=== PATIENT | female | born 1965 | race Caucasian/White ===

== ENCOUNTER 2023-10-23 13:27 | Outpatient (AMB) | payer BC, SELFPAY ==
[2023-10-23 13:34] VITALS: BP 118/70; PULSE 84; O2SAT 95; BMI 24.9
--- NOTE | 2023-10-23 13:34 | A.OFFVIS_ITS ---
Intake Vital Signs 10/23/23 13:34 Height 5 ft 4 in Weight 145 lb BMI 24.9 BP 118/70 Blood Pressure Location Lt brachial Position Sitting Pulse 84 Pulse Source Pulse Oximeter Pulse Oximetry (%) 95 Oxygen Delivery Method Room Air Intake Visit Reasons: asthma, lung nodule Clinical Laboratory Science Professor Required: No Allergies No Known Allergies Allergy (Verified 10/23/23 13:37) HPI HPI Comments History of Present Illness Details The patient is here for a pulmonary evaluation. The patient is a 57-year-old woman with a known history of asthma who apparently was in her usual state health until she had a incident at work where she fell and ended up being evaluating the ER. She had a chest x-ray and subsequently from the x-ray she underwent a CT scan of the chest to follow-up some findings. I did personally review the CT scan with the patient. The patient is noted to have pulmonary nodules largest 1 measuring 6 mm in size. In addition to that the patient She has areas of ground-glass opacities primarily left more than right primarily around the lingular area. In addition to that she does have some degree of atelectasis and scarring the bases. Right more than left. Patient as a child did have significant asthma and she did have episodes of lower respiratory infections. Therefore med she may have some degree of scarring from recurrent infections. as far as exposures the patient denies having any exposure to any birds or farm exposure or any mold. the patient has an occasion use a vape or pipe for medicinal purposes. At this point I recommend the patient not to use any inhaled medicines except for the respiratory medications provided. the patient is going to have additional blood work. As far as inflammatory condition she denies any rashes or any activities except further injury. She does have family history of connective tissue disease, however. [facility] Medical History (Updated 10/25/23 @ 21:36 by Devin iLno MD) Alopecia Pulmonary nodules Asthma Pneumonitis Social History (Updated 10/23/23 @ 13:39 by LYNDA Giron) Patient Tobacco Use Status: Never used Tobacco Review of Systems Const Denies fever(s) and Denies weight loss Eyes Reports no additional complaints ENT Reports nasal congestion Card Denies chest pain Resp Reports cough and Reports wheezing GI Reports no additional complaints Musc Reports no additional complaints Skin/Breast Denies rash Neuro Reports no additional complaints Nilo/Lymph Denies lymphadenopathy Aller/Immun Reports wheezing Physical Exam Vital Signs: Last Vital Signs Pulse 84 10/23/23 13:34 BP 118/70 10/23/23 13:34 Pulse Ox 95 10/23/23 13:34 Oxygen Delivery Method Room Air 10/23/23 13:34 BMI result Body Mass Index 24.9 Const General: comfortable Neck Neck: Yes supple Chest Chest palpation & inspection: normal inspection of the chest Resp Effort & Inspection: normal respiratory effort Auscultation: clear to auscultation bilaterally Cardio Heart sounds: S1 normal heart sound present and S2 normal heart sound present GI Palpation (GI): Soft to palpation Skin General skin exam: no rashes or lesions noted Extrem General: Yes no clubbing, cyanosis or edema Assessment & Plan Assessment & Plan (1) Asthma: Code(s): J45.909 - Unspecified asthma, uncomplicated Qualifiers: Asthma severity: moderate Asthma persistence: persistent Asthma complication type: uncomplicated Qualified Code(s): J45.40 - Moderate persistent asthma, uncomplicated (2) Pneumonitis: Code(s): J98.4 - Other disorders of lung (3) Pulmonary nodules: Code(s): R91.8 - Other nonspecific abnormal finding of lung field Plan Continue Symbicort YESI as needed continue singulair No vaping or inhaled medicinal Cannabinoids Bloodwork/allergy testing PFTs CT chest in 6 months F/U 2-3 months Orders: Orders Complete Blood Count Auto Diff 10/23/23 J45.909 - Unspecified asthma, uncomplicated, J98.4 - Other disorders of lung CHALO Reflex Titer and Pattern 10/23/23 J45.909 - Unspecified asthma, uncomplicated, J98.4 - Other disorders of lung Cyclic Citrullinated Peptide 10/23/23 J45.909 - Unspecified asthma, uncomplicated, J98.4 - Other disorders of lung Erythrocyte Sedimentation Rate 10/23/23 J45.909 - Unspecified asthma, uncomplicated, J98.4 - Other disorders of lung Hypersensitive Pneumonitis Prf 10/23/23 J45.909 - Unspecified asthma, uncompl icated, J98.4 - Other disorders of lung, R91.8 - Other nonspecific abnormal finding of lung field Immunoglobulin E 10/23/23 J45.909 - Unspecified asthma, uncomplicated, J98.4 - Other disorders of lung Resp Allergy Profile Region I 10/23/23 J45.909 - Unspecified asthma, uncomplicated, J98.4 - Other disorders of lung Anti DNA DS Antibody 10/23/23 J45.909 - Unspecified asthma, uncomplicated, J98.4 - Other disorders of lung PFT pulmonary function test Today J45.40 - Moderate persistent asthma, uncomplicated CT chest wo IV con 6 Months R91.8 - Other nonspecific abnormal finding of lung field Coding Level of Care Code New Pt Level 4 (99869) Diagnoses Moderate persistent asthma without complication J45.40 Asthma severity: moderate Asthma persistence: persistent Asthma complication type: uncomplicated Pneumonitis J98.4 Pulmonary nodules R91.8 Time Spent (min) 45
== END 2023-10-23 14:30 ==
PROVIDERS: PCP Internal Medicine; Referring Provider Internal Medicine; Visit Provider Hospitalist
DX: J45.40 Moderate persistent asthma, uncomplicated (principal); J98.4 Other disorders of lung; R91.8 Other nonspecific abnormal finding of lung field
CPT/HCPCS: 99204

== ENCOUNTER → 2023-10-23 13:27 | Outpatient (BNVA) | payer BC, SELFPAY | PROVIDERS: PCP Internal Medicine; Referring Provider Internal Medicine; Visit Provider Hospitalist ==

== ENCOUNTER 2024-11-29 14:53 | Outpatient (REF) | payer BC, SELFPAY ==
[2024-11-29 16:23] LABS: Influenza A PCR NEGATIVE (Negative); Influenza B PCR NEGATIVE (Negative); Resp Syncy Virus RNA Qual PCR NEGATIVE (Negative); SARS COV2 PCR INHOUSE NEGATIVE (Negative)
--- OUTSIDE RECORDS SUMMARY | 2024-11-29 16:26 | XMS_ITS | Clinical Summary ---
Author Organization [facility] ity Address [place] [address] Care Team Providers Care Rehab Director Occupational Therapist Name Role Phone Naveed Orosco MD Primary Care Provider [phone] Social History Tobacco Use Types Packs/Day Years [...] age to complete this topic Care Teams Rehab Director Occupational Therapist Relationship Specialty Start Date End Date Naveed Orosco MD PCP - General Internal Medicine 07/10/21
== END 2024-11-29 14:54 | disposition home or self-care (01) ==
LOC: HO.LNP 14:53
PROVIDERS: PCP Internal Medicine; Visit Provider Hospitalist
DX: J45.41 Moderate persistent asthma with (acute) exacerbation (principal); J98.4 Other disorders of lung; R91.8 Other nonspecific abnormal finding of lung field; J40 Bronchitis, not specified as acute or chronic
CPT/HCPCS: 0241U

== ENCOUNTER 2024-11-29 14:53 | Outpatient (AMB) | payer BC, SELFPAY ==
--- NOTE | 2024-11-29 15:00 | A.OFFVIS_ITS ---
Vital Signs 11/29/24 15:01 Height 5 ft 4 in Weight 148 lb 12.992 oz BMI 25.5 BP 130/84 Blood Pressure Location Rt brachial Position Sitting Pulse 83 Pulse Source Pulse Oximeter Pulse Oximetry (%) 95 Oxygen Delivery Method Room Air Intake Visit Reasons: dyspnea, wheeze Allergies No Known Allergies Allergy (Verified 11/29/24 15:05) HPI Comments Details: The patient is a 59-year-old woman with a known history of asthma who apparently was in her usual state health until she had a incident at work where she fell and ended up being evaluating the ER. She had a chest x-ray and subsequently from the x-ray she underwent a CT scan of the chest to follow-up some findings. I did personally review the CT scan with the patient. The patient is noted to have pulmonary nodules largest 1 measuring 6 mm in size. In addition to that the patient She has areas of ground-glass opacities primarily left more than right primarily around the lingular area. In addition to that she does have some degree of atelectasis and scarring the bases. Right more than left. Patient as a child did have significant asthma and she did have episodes of lower respiratory infections. Therefore med she may have some degree of scarring from recurrent infections. as far as exposures the patient denies having any exposure to any birds or farm exposure or any mold. the patient has an occasion use a vape or pipe for medicinal purposes. At this point I recommend the patient not to use any inhaled medicines except for the respiratory medications provided. the patient is going to have additional blood work. As far as inflammatory condition she denies any rashes or any activities except further injury. She does have family history of connective tissue disease, however. 11/29/2024 the patient is here for sick visit. She has been sick we started developing chest tightness and cough. Sometimes productive although not recently. Moderate severity. She has been using her respiratory therapy with only partial resolution of symptoms. On exam she does have prolonged expiratory phase with post exhalation and coughing wheezing. The patient will need some steroids. Although she did develop significant alopecia whenever solids after prolonged course of prednisone. Therefore will go ahead and send her Medrol to the pharmacy and also doxycycline. The patient also needs to continue to use her inhalers as prescribed and also needs to continue to use her nebulizer or rescue inhaler once or twice a day in between. We did swab her for flu RSV and COVID-19 and they were all negative with a PCR test. The patient was supposed to get a CT scan of the chest but she has not done as of yet. Now that she is sick with viral syndrome will hold off for couple months to make sure that we do not see any acute manifestations of viral disease on her CT scan. Therefore, follow-up CT scan if any issues arise she will call for an earlier assessment. [facility] Medical History (Updated 11/29/24 @ 23:06 by Devin Lino MD) Alopecia Pulmonary nodules Asthma Pneumonitis Social History Patient Tobacco Use Status: Never used Tobacco Review of Systems Const Denies fever(s) and Denies weight loss Eyes Reports no additional complaints ENT Reports nasal congestion Card Denies chest pain Resp Reports chest congestion, Reports cough and Reports wheezing GI Reports no additional complaints Musc Reports no additional complaints Skin/Breast Denies rash Neuro Reports no additional complaints Nilo/Lymph Denies lymphadenopathy Aller/Immun Reports wheezing Physical Exam Vital Signs: Last Vital Signs Pulse 83 11/29/24 15:01 BP 130/84 11/29/24 15:01 Pulse Ox 95 11/29/24 15:01 Oxygen Delivery Method Room Air 11/29/24 15:01 BMI result Body Mass Index 25.5 Const General: comfortable Neck Neck: Yes supple Chest Chest palpation & inspection: normal inspection of the chest Resp Effort & Inspection: normal respiratory effort Auscultation: rhonchi, wheezes and diminished lung sounds Cardio Heart sounds: S1 normal heart sound present and S2 normal heart sound present GI Palpation (GI): Soft to palpation Skin General skin exam: no rashes or lesions noted Extrem General: Yes no clubbing, cyanosis or edema Assessment & Plan Assessment & Plan (1) Asthma: Code(s): J45.909 - Unspecified asthma, uncomplicated Category: Medical Qualifiers: Asthma complication type: with acute exacerbation Asthma persistence: persistent Asthma severity: moderate Qualified Code(s): J45.41 - Moderate persistent asthma with (acute) exacerbation (2) Pneumonitis: Code(s): J98.4 - Other disorders of lung Category: Medical (3) Pulmonary nodules: Code(s): R91.8 - Other nonspecific abnormal finding of lung field Category: Medical (4) Bronchitis: Code(s): J40 - Bronchitis, not specified as acute or chronic Category: Medical Plan Start Medrol pk sStart Doxycycline Continue Trelagy YESI as needed continue singulair No vaping or inhaled medicinal Cannabinoids CT chest in 2-3 months F/U 3-4 months Orders: Orders SARS-CoV2/FLU/RSV Today J45.40 - Moderate persistent asthma, uncomplicated CT chest wo IV con 01/16/25 J98.4 - Other disorders of lung, R91.8 - Other nonspecific abnormal finding of lung field Medications: New methylprednisolone (Medrol (Juan Ramon)) PO PER PKG DIR 21 ea 0RF 6 days doxycycline hyclate 100 mg PO BID 20 caps 0RF 10 days albuterol sulfate 2.5 mg (3 mL) inhalation Q6H PRN 180 mL 11RF shortness of breath or wheezing 30 days Refilled zlwuwvtkwuz-tccvmvdxg-itdsbome 200-62.5-25 mcg (Trelegy Ellipta) 1 inh inhalation DAILY 60 ea 12RF 30 days Coding Level of Care Code Est Pt Level 4 (26503) Diagnoses Moderate persistent asthma with acute exacerbation J45.41 Asthma complication type: with acute exacerbation Asthma persistence: persistent Asthma severity: moderate Pneumonitis J98.4 Pulmonary nodules R91.8 Bronchitis J40 Time Spent (min) 16
[2024-11-29 15:01] VITALS: BP 130/84; PULSE 83; O2SAT 95; BMI 25.5
--- OUTSIDE RECORDS SUMMARY | 2024-11-29 15:51 | XMS_ITS | Clinical Summary ---
Author Organization [facility] [place] [address] Care Team Providers Care Business Leader Name Role Phone Naveed Orosco MD Primary Care Provider [phone] Social History Tobacco Use Types Packs/Day Years Used Date Smoking Tobacco: Never Assessed Comments Unknown Sex and Gender Information Value Date Recorded Sex Assigned at Not on file Legal Sex Female 9:03 PM EST Gender Identity Not on file Sexual Orientation Not on file Plan of Treatment Health Maintenance Due Date Last Done Comments Breast Cancer Screening 1965 DTaP,Tdap,and Td Vaccines (1 - Tdap) 1983 Cervical Cancer Screening: P ap Smear 1985 Pneumococcal Vaccine: 50+ Ye ars (1 of 1 - PCV) 2014 Zoster Vaccines (1 of 2) 2014 Colorectal Cancer Screening: Colonoscopy 09/13/2022 Depression Screening 09/13/2022 HIV Screening 09/13/2022 Hepatitis C Screening 09/13/2022 Social Influencers of Health Screening 09/13/2022 COVID-19 Vaccine ( - 2023-2 5 season) 2024 Influenza Vaccine (#1) 2024 RSV Immunization Patients 60 + Years Old (1 - 1-dose 75+ series) 2039 HIB Vaccines Aged Out No longer eligi ble based on patient's age to complete this topic HPV Vaccines Aged Out No longer eligi ble based on patient's age to complete this topic Hepatitis A Vaccines Aged Out No long er eligible based on patient's age to complete this topic Hepatitis B Vaccines Aged Out No long er eligible based on patient's age to complete this topic IPV Vaccines Aged Out No longer eligi ble based on patient's age to complete this topic MMR Vaccines Aged Out No longer eligi ble based on patient's age to complete this topic Meningococcal ACWY Vaccine Aged Out N o longer eligible based on patient's age to complete this topic Meningococcal B Vacine Aged Out No lo nger eligible based on patient's age to complete this topic Pneumococcal Vaccine: Pediat rics (0 to 5 Years) and At-Risk Patients (6 to 64 Years) Aged Out No longer eligible b ased on patient's age to complete this topic RSV Immunization Patients Un jyoti 20 months Aged Out No longer eligible b ased on patient's age to complete this topic Varicella Vaccines Aged Out No longer eligible based on patient's age to complete this topic Care Teams Business Leader Relationship Specialty Start Date End Date Naveed Orosco MD PCP - General Internal Medicine 07/10/21
== END 2024-11-29 15:26 | disposition home or self-care (01) ==
PROVIDERS: PCP Internal Medicine; Visit Provider Hospitalist
DX: J45.41 Moderate persistent asthma with (acute) exacerbation (principal); J98.4 Other disorders of lung; R91.8 Other nonspecific abnormal finding of lung field; J40 Bronchitis, not specified as acute or chronic
CPT/HCPCS: 99214

== ENCOUNTER 2025-02-13 15:41 | Outpatient (AMB) | payer BC, SELFPAY ==
--- NOTE | 2025-02-13 15:42 | MHC.OFFVIS ---
Vital Signs 02/13/25 15:44 Height 5 ft 4 in Weight 159 lb 13.362 oz BMI 27.4 BP 118/64 Blood Pressure Location Lt brachial Position Sitting Pulse 85 Pulse Source Pulse Oximeter Pulse Oximetry (%) 95 Oxygen Delivery Method Room Air Intake Visit Reasons: Asthma Lumber Loader Required: No Accompanied by: self Allergies No Known Allergies Allergy (Verified 02/13/25 15:45) HPI Comments Details: The patient is a 59-year-old woman with a known history of asthma who apparently was in her usual state health until she had a incident at work where she fell and ended up being evaluating the ER. She had a chest x-ray and subsequently from the x-ray she underwent a CT scan of the chest to follow-up some findings. I did personally review the CT scan with the patient. The patient is noted to have pulmonary nodules largest 1 measuring 6 mm in size. In addition to that the patient She has areas of ground-glass opacities primarily left more than right primarily around the lingular area. In addition to that she does have some degree of atelectasis and scarring the bases. Right more than left. Patient as a child did have significant asthma and she did have episodes of lower respiratory infections. Therefore med she may have some degree of scarring from recurrent infections. as far as exposures the patient denies having any exposure to any birds or farm exposure or any mold. the patient has an occasion use a vape or pipe for medicinal purposes. At this point I recommend the patient not to use any inhaled medicines except for the respiratory medications provided. the patient is going to have additional blood work. As far as inflammatory condition she denies any rashes or any activities except further injury. She does have family history of connective tissue disease, however. 11/29/2024 the patient is here for sick visit. She has been sick we started developing chest tightness and cough. Sometimes productive although not recently. Moderate severity. She has been using her respiratory therapy with only partial resolution of symptoms. On exam she does have prolonged expiratory phase with post exhalation and coughing wheezing. The patient will need some steroids. Although she did develop significant alopecia whenever solids after prolonged course of prednisone. Therefore will go ahead and send her Medrol to the pharmacy and also doxycycline. The patient also needs to continue to use her inhalers as prescribed and also needs to continue to use her nebulizer or rescue inhaler once or twice a day in between. We did swab her for flu RSV and COVID-19 and they were all negative with a PCR test. The patient was supposed to get a CT scan of the chest but she has not done as of yet. Now that she is sick with viral syndrome will hold off for couple months to make sure that we do not see any acute manifestations of viral disease on her CT scan. Therefore, follow-up CT scan if any issues arise she will call for an earlier assessment. 02/13/2025 the patient is here for pulmonary follow-up visit. Overall the patient is feeling a lot better. She continues use the Trelegy 200 mcg on a daily basis. Has not had to use her rescue inhaler. She has no longer had to use any prednisone steroids. The patient has not had her CT scan of the chest yet. We will call her with the information so she can reschedule the appointment for the CAT scan. She had a 6 mm pulmonary nodule that can a lots CAT scan that needs follow-up. She also had areas of ground-glass opacities that need to be readdressed. In the meantime will go ahead and decrease her Trelegy to the 100 mcg dose and start her on Singulair with the hopes that we can spare her from additional immunosuppressant therapy since she is already on other immunosuppressive therapies. The patient follow-up in a year's time if she has any worsening symptoms prior to the next visit she will call for an earlier assessment. [facility] Medical History (Updated 11/29/24 @ 23:06 by Devin Lino MD) Alopecia Pulmonary nodules Asthma Pneumonitis Social History (Updated 02/13/25 @ 15:47 by Reena Lyn CMA) Alcohol intake: current Alcohol intake frequency: holidays/special occasions only Patient Tobacco Use Status: Never used Tobacco Review of Systems Const Denies chills, Denies fatigue, Denies fever(s), Denies weight gain and Denies weight loss ENT Denies dizziness Card Denies chest pain, Denies leg edema, Denies lightheadedness, Denies palpitations, Denies dyspnea on exertion, Denies orthopnea and Denies other Resp Reports cough and Denies dyspnea on exertion GI Denies hematochezia and Denies change in stool character Musc Denies abnormal gait, Denies muscle weakness, Denies numbness, Denies radiating pain into limb and Denies tingling Neuro Denies abnormal gait, Denies dizziness, Denies numbness and Denies tingling Endo Denies fatigue and Denies palpitations Physical Exam Vital Signs: Last Vital Signs Pulse 85 02/13/25 15:44 BP 118/64 02/13/25 15:44 Pulse Ox 95 02/13/25 15:44 Oxygen Delivery Method Room Air 02/13/25 15:44 BMI result Body Mass Index 27.4 Const General: comfortable Neck Neck: Yes supple Chest Chest palpation & inspection: normal inspection of the chest Resp Effort & Inspection: normal respiratory effort Auscultation: clear to auscultation bilaterally, no rhonchi and no wheezes Cardio Heart sounds: S1 normal heart sound present and S2 normal heart sound present GI Palpation (GI): Soft to palpation Skin General skin exam: no rashes or lesions noted Extrem General: Yes no clubbing, cyanosis or edema Assessment & Plan Assessment & Plan (1) Asthma: Code(s): J45.909 - Unspecified asthma, uncomplicated Category: Medical Qualifiers: Asthma complication type: with acute exacerbation Asthma persistence: persistent Asthma severity: moderate Qualified Code(s): J45.41 - Moderate persistent asthma with (acute) exacerbation (2) Pneumonitis: Code(s): J98.4 - Other disorders of lung Category: Medical (3) Pulmonary nodules: Code(s): R91.8 - Other nonspecific abnormal finding of lung field Category: Medical (4) Bronchitis: Code(s): J40 - Bronchitis, not specified as acute or chronic Category: Medical Plan Continue Trelagy, decrease 200->100mcg YESI as needed restart singulair No vaping or inhaled medicinal Cannabinoids CT chest, pt needs to reschedule F/U 8-12 months Medications: New montelukast (Singulair) 10 mg PO BEDTIME 30 tabs 11RF 30 days J45.909 - Unspecified asthma, uncomplicated tbxukilmixo-eazwmxxxf-bhydnloi 100-62.5-25 mcg (Trelegy Ellipta) 1 inh inhalation DAILY 60 ea 11RF 30 days J44.9 - Chronic obstructive pulmonary disease, unspecified Discontinued gsvcutranun-stxgbiffa-bbuvdoiv 200-62.5-25 mcg (Trelegy Ellipta) Discontinued Reason: Duplicate 1 inh inhalation DAILY 30 days 60 ea 12RF Coding Level of Care Code Est Pt Level 4 (18297) Complex EM visit Add On G2211 Diagnoses Moderate persistent asthma with acute exacerbation J45.41 Asthma complication type: with acute exacerbation Asthma persistence: persistent Asthma severity: moderate Pneumonitis J98.4 Pulmonary nodules R91.8 Bronchitis J40 Time Spent (min) 17
[2025-02-13 15:44] VITALS: BP 118/64; PULSE 85; O2SAT 95; BMI 27.4
--- OUTSIDE RECORDS SUMMARY | 2025-02-13 17:12 | XMS_ITS | Clinical Summary ---
Author Organization [facility] [place] [address] Care Team Providers Care Student Finance Specialist Name Role Phone Naveed Orosco MD Primary Care Provider [phone] Social History Tobacco Use Types Packs/Day Years [...] - 2023-2 5 season) 2024 Influenza Vaccine (Season Ended) 2025 RSV Immunization Adult Patie nts (1 - 1-dose 75+ series) 2039 HIB [...] age to complete this topic Meningococcal B Vaccine Aged Out No l onger eligible based on patient's age to complete [...] age to complete this topic Care Teams Student Finance Specialist Relationship Specialty Start Date End Date Naveed Orosco MD PCP - General Internal Medicine 07/10/21
== END 2025-02-13 16:11 | disposition home or self-care (01) ==
LOC: HO.HPS 15:42
PROVIDERS: PCP Internal Medicine; Visit Provider Hospitalist
DX: J45.41 Moderate persistent asthma with (acute) exacerbation (principal); J98.4 Other disorders of lung; R91.8 Other nonspecific abnormal finding of lung field; J40 Bronchitis, not specified as acute or chronic
CPT/HCPCS: 99214

== ENCOUNTER → 2025-02-13 15:41 | Outpatient (BNVA) | payer BC, SELFPAY | PROVIDERS: PCP Internal Medicine; Visit Provider Hospitalist | DX: J45.40 Moderate persistent asthma, uncomplicated (principal) ==

== ENCOUNTER 2025-07-29 10:05 | Outpatient (REF) | payer BC, SELFPAY ==
--- OUTSIDE RECORDS SUMMARY | 2024-12-29 11:17 | XMS_ITS ---
Author Organization [facility] Address [address], [place] [id number] Care Team Providers Care Reinforcing Iron And Rebar Workers Name Role Phone JEN BANERJEE Primary Care Provider zz(DO NOT USE) JEN BANERJEE Unavailable U navailable MEDICATIONS Medication SIG (Take, Route, Fr equency, Duration) Notes Start Date End Date Status Adderall 10 MG 1 tablet Orally once a day for 30 days 12/29/2024 Active Encounters Encounter Location Date Provider Diagnosis [address] [address] 12/29/2024 JEN BANERJEE PLAN OF TREATMENT Medication Medication Name Sig Start Date Stop Date Notes Adderall 10 MG 1 tablet Orally once a day for 30 days 12/11 Next Appt Details Provider Name:JEN BROWN, 11/28/2025 01:15:00 PM, [address] [place], [address],
--- OUTSIDE RECORDS SUMMARY | 2025-03-13 12:22 | XMS_ITS ---
Author Organization [facility] Address [address], [place] [id number] Care Team Providers Care Billet Worker Name Role Phone JEN BANERJEE Primary Care Provider [phone] zz(DO NOT USE) JEN BANERJEE Unavailable U navailable REASON FOR VISIT adderrall MEDICATIONS Medication SIG (Take, Route, Fr equency, Duration) Notes Start Date End Date Status Adderall 10 MG 1 tablet Orally once a day for 30 days 03/13/2025 Active Encounters Encounter Location Date Provider Diagnosis [address] [address] 03/13/2025 JEN BANERJEE PLAN OF TREATMENT Medication Medication Name Sig Start Date Stop Date Notes Adderall 10 MG 1 tablet Orally once a day for 30 days 11/2024 Next Appt Details Provider Name:JEN BROWN, 11/28/2025 01:15:00 PM, [address] [place] [address], [phone],
--- OUTSIDE RECORDS SUMMARY | 2025-05-02 02:44 | XMS_ITS ---
Author Organization [facility] Address [address] [place], [place] [address] Care Team Providers Care Metal Buggy Operator Name Role Phone JEN BANERJEE Primary Care Provider [phone] zz(DO NOT USE) JEN BANERJEE Unavailable U navailable REASON FOR VISIT (H)cat scan Encounters Encounter Location Date Provider Diagnosis [address] [address] 05/02/2025 JEN BANERJEE PLAN OF TREATMENT Next Appt Details Provider Name:JEN BROWN, 11/28/2025 01:15:00 PM, [address] [place], [address],
--- OUTSIDE RECORDS SUMMARY | 2025-05-02 02:48 | XMS_ITS ---
Author Organization [facility] Address [address] [place], [place] [address] Care Team Providers Care Motorcycle Fabricator Name Role Phone JEN BANERJEE Primary Care Provider [phone] zz(DO NOT USE) JEN BANERJEE Unavailable U navailable REASON FOR VISIT (H)colonoscopy Encounters Encounter Location Date Provider Diagnosis [address] [address] 05/02/2025 JEN BANERJEE PLAN OF TREATMENT Next Appt Details Provider Name:JEN BROWN, 11/28/2025 01:15:00 PM, [address] [place] [address], [phone],
--- OUTSIDE RECORDS SUMMARY | 2025-05-10 07:41 | XMS_ITS ---
Author Organization [facility] Address [address] [place], [place] [address] Care Team Providers Care Facilities Maintenance Manager Name Role Phone JEN BANERJEE Primary Care Provider [phone] zz(DO NOT USE) JEN BANERJEE Unavailable U navailable REASON FOR VISIT rescheduled cpx Encounters Encounter Location Date Provider Diagnosis [address] [address] 05/10/2025 JEN BANERJEE PLAN OF TREATMENT Next Appt Details Provider Name:JEN BROWN, 11/28/2025 01:15:00 PM, [address] [place], [address],
--- OUTSIDE RECORDS SUMMARY | 2025-05-11 04:30 | XMS_ITS ---
Author Organization [facility] Address [address] [place], [place] [address] Care Team Providers Care Outreach Coordinator Name Role Phone LAVONNE JEN Primary Care Provider zz(DO NOT USE) JEN BANERJEE Unavailable U navailable REASON FOR VISIT 42/physical MEDICATIONS Medication SIG (Take, Route, Frequency, Duration) Notes Start Date End Date Status Albuterol Sulfate (sensor) 108 (90 Base) MCG/ACT 1 puff as needed Inhalation every 4 hrs for 30 days Unknown Breo Ellipta 200-25 MCG/ACT 1 puff Inhal ation Once a day for 90 days Unknown Symbicort 160-4.5 MCG/ACT 2 puffs Inhala tion Twice a day for 30 days Unknown Lexapro 20 MG 1 tablet Orally Once a day for 90 days Unknown Montelukast Sodium 10 MG TAKE 1 TABLET B Y MOUTH EVERY DAY for 90 Unknown Singulair 10 MG 1 tablet Orally Once a day Unknown Minoxidil 2.5 MG 1 tablet Orally Once a day Unknown Fish Oil 1000 MG 1 capsule Orally Onc e a day for 30 day(s) Unknown Olumiant 2 MG 1 tablet Orally Once a day for 30 day(s) Unknown Biotin 1000 MCG 1/2 tablet Orally tw ice a day Unknown Escitalopram Oxalate 20 MG TAKE 1 TABLET BY MOUTH EVERY DAY FOR 90 DAYS for 90 Unknown Adderall 10 MG 1 tablet Orally once a day for 30 days 03/13/2025 Unknown Encounters Encounter Location Date Provider Diagnosis [facility] [address] [place] [address] 05/11/2025 JEN BANERJEE Asthma, unspecified asthma severity, unspecified whether complicated, unspecified whether persistent J45.909 ; Disorder of lipoprotein metabolism, unspecified E78.9 ; Lung nodule R91.1 ; Encntr for general adult medical exam w/o abnormal findings Z00.00 ; Irritable bowel syndrome with diarrhea K58.0 ; Encounter for screening mammogram for malignant neoplasm of breast Z12.31 and Osteoporosis screening Z13.820 ASSESSMENTS Encounter Date Diagnosis Assessment Notes Treatment Notes Treatment Clinical Notes Section Notes 05/11/2025 Asthma, unspecified asthma severity, unspecified whether complicated, unspecified whether persistent (ICD-10 - J45.909) 05/11/2025 Disorder of lipoprotein metabolism, unspecified (ICD-10 - E78.9) 05/11/2025 Lung nodule (ICD-10 - R91.1) 05/11/2025 Encntr for general adult medical exam w/o abnormal findings (ICD-10 - Z00.00) 05/11/2025 Irritable bowel syndrome with diarrhea (ICD-10 - K58.0) 05/11/2025 Encounter for screening mammogram for malignant neoplasm of breast (ICD-10 - Z12.31) 05/11/2025 Osteoporosis screening (ICD-10 - Z13.820) PLAN OF TREATMENT Pending Test Test Name Order Date EKG 05/11/2025 Future Test Test Name Order Date Urinalysis, Complete w/[id number] CBC, Platelet, w/o Differential-[id number] 0 05/02/2025 C-Reactive Protein, Cardiac-[id number] 05/02 Lipid Panel-[id number] 05/02/2025 HCV Antibody-[id number] 05/02/2025 Comp. Metabolic Panel [id number] 2024 Next Appt Details Follow Up: Physical exam abd omen 1 year labs pending EKG today, Reason: Provider Name:JEN BROWN, 11/28/2025 01:15:00 PM, [address] [place], [address], History and Physical Notes * HPI (History of Present Illness) Category Sub-Category Detail Notes Category Not es General Physical exam. See review of systems below
--- OUTSIDE RECORDS SUMMARY | 2025-05-24 08:32 | XMS_ITS ---
Author Organization [facility] Address [address] [place], [place] [id number] Care Team Providers Care Assembler Watch Train Name Role Phone JEN BANERJEE Primary Care Provider [phone] zz(DO NOT USE) JEN BANERJEE Unavailable U navailable REASON FOR VISIT aderral MEDICATIONS Medication SIG (Take, Route, Fr equency, Duration) Notes Start Date End Date Status Adderall 10 MG 1 tablet Orally once a day for 30 days 05/24/2025 Active Encounters Encounter Location Date Provider Diagnosis [address] [address] 05/24/2025 JEN BANERJEE PLAN OF TREATMENT Medication Medication Name Sig Start Date Stop Date Notes Adderall 10 MG 1 tablet Orally once a day for 30 days 05/12 Next Appt Details Provider Name:JEN BROWN, 11/28/2025 01:15:00 PM, [address] [place] [address], [phone],
--- OUTSIDE RECORDS SUMMARY | 2025-06-06 06:59 | XMS_ITS ---
Author Organization [facility] Address [address] [place], [place] [address] Care Team Providers Care Direct Customer Service Representative Name Role Phone JEN BANERJEE Primary Care Provider zz(DO NOT USE) JEN BANERJEE Unavailable U navailable REASON FOR VISIT Status of Dermatology Ref Encounters Encounter Location Date Provider Diagnosis [address] [address] 06/06/2025 JEN BANERJEE PLAN OF TREATMENT Next Appt Details Provider Name:JEN BROWN, 11/28/2025 01:15:00 PM, [address] [place], [address],
--- OUTSIDE RECORDS SUMMARY | 2025-07-10 08:52 | XMS_ITS ---
Author Organization [facility] Address [address] [place], [place] [id number] Care Team Providers Care Supervisor Welding Equipment Repairer Name Role Phone JEN BANERJEE Primary Care Provider [phone] zz(DO NOT USE) JEN BANERJEE Unavailable U navailable REASON FOR VISIT New Referral Request Encounters Encounter Location Date Provider Diagnosis [address] [address] 07/10/2025 JEN BANERJEE PLAN OF TREATMENT Next Appt Details Provider Name:JEN BROWN, 11/28/2025 01:15:00 PM, [address] [place] [address], [phone],
--- OUTSIDE RECORDS SUMMARY | 2025-07-13 05:10 | XMS_ITS ---
Author Organization [facility] Address [address] [place], [place] [phone] Care Team Providers Care Paper Feeder Name Role Phone JEN BANERJEE Primary Care Provider [phone] zz(DO NOT USE) JEN BANERJEE Unavailable U navailable REASON FOR VISIT adderall MEDICATIONS Medication SIG (Take, Route, Fr equency, Duration) Notes Start Date End Date Status Adderall 10 MG 1 tablet Orally once a day for 30 days 07/13/2025 Active Encounters Encounter Location Date Provider Diagnosis [address] [address] 07/13/2025 JEN BANERJEE PLAN OF TREATMENT Medication Medication Name Sig Start Date Stop Date Notes Adderall 10 MG 1 tablet Orally once a day for 30 days 11/2024 Next Appt Details Provider Name:JEN BROWN, 11/28/2025 01:15:00 PM, [address] [place] [address], [phone],
--- NOTE | ~2025-07-29 | CT_ITS ---
CLINICAL HISTORY: R91.8 - Other nonspecific abnormal finding of lung field CT CHEST WITHOUT CONTRAST Comparison: None provided Findings: The heart size is normal. Trace pericardial effusion. Nonaneurysmal thoracic aorta. No thyromegaly or mediastinal lymphadenopathy. No consolidation, pleural effusion, or pneumothorax. 7 mm noncalcified right lower lobe nodule, image 101/5. 4 mm noncalcified subpleural nodule in the right lower lobe, image 108/5. No discrete pulmonary mass. Scattered atelectasis and/or scarring. Hepatic steatosis. Healed and/or healing nonunited fracture in left rib 9 laterally. IMPRESSION: 1. No acute pleural or pulmonary parenchymal process. 2. Nonspecific 4 mm and 7 mm nodules in the right lower lobe. ACR Fleischner Society recommendations (MacMahon, et al. Radiology 2017; 284(1): 228-43) suggest the following: For patients with low risk of lung cancer, initial chest CT at 3-6 months. If stable, no further follow-up or an optional chest CT at 18-24 months if there is high index of suspicion. For patients with high risk of lung cancer, initial chest CT at 3-6 months. If stable, another chest CT at 18-24 months. This document has been electronically signed by: Cyndie Aranda DO on 08/01/2025 14:18:10
--- OUTSIDE RECORDS SUMMARY | 2025-07-29 10:08 | XMS_ITS | Clinical Summary ---
Author Organization [facility] Address [address] [address] Phone Care Team Providers Care Engineering Operations Leader Name Role Phone Naveed Orosco MD Primary Care Provider [phone] Allergies Active Allergy Reactions Criticality Noted Date Comments Bee Pollen 11/05/2019 Medications montelukast (SINGULAIR) 10 mg tablet Take 10 mg by mouth nightly at bedtime. Active escitalopram oxalate (LEXAPRO) 10 MG tablet Take 10 mg by mouth daily. Active Medication-Free TextIndications :BREO Inhale 200 mcg into the lungs daily. Indications: BREO Active albuterol 90 mcg/actuation inhaler Inhale 2 puffs into the lungs every 6 (six) hours as needed for wheezing. Active OLUMIANT 2 mg tablet 05/19/2023 Active minoxidiL (LONITEN) 2.5 MG tablet Take 1 tablet by mouth every morning. 08/01/2023 Active morphine (MSIR) 15 MG tablet Take 1 tablet (15 mg total) by mouth every 6 (six) hours as needed for pain (specific location in comments). Partial fill ok 12 tablet 08/04/2023 Active Active Problems Problem Noted Date Diagnosed Date Alopecia 10/10/2011 Overview (12/02/2014): Alopecia; areata Social History Tobacco Use Types Packs/Day Years Used Date Smoking Tobacco: Never Smokeless Tobacco: Never Alcohol Use Standard Drinks/Week Comments Yes 5 (1 standard drink = 0.6 oz pur e alcohol) daily Education Answer Date Recorded Are you interested in more education? Not on jyothi e 02/05/2023 Are you concerned about learning? Not on file 02/05/2023 No 02/05/2023 No 02/05/2023 Digital Access Answer Date Recorded No 03/09/2023 No 03/09/2023 No 03/09/2023 Reliable internet access at home? Not on file 03/09/2023 Device with a working camera? Not on file Intimate Partner Violence Answer Date R ecorded Are you denied basic needs s uch as food, clothing, or medical care? No 08/04/2023 In the past 12 months have y ou been in a relationship with a person who hurts, threatens, or tries to control you? No 08/04/2023 Are you denied basic needs s uch as food, clothing, or medical care? No 08/04/2023 In the past 12 months have y ou been in a relationship with a person who hurts, threatens, or tries to control you? No 08/04/2023 Comments Unknown Sex and Gender Information Value Date Recorded Sex Assigned at Female 11/05/2019 3:11 PM EST Legal Sex Female 7:19 PM EST Gender Identity Female 11/05/2019 3:11 PM EST Sexual Orientation Lesbian or Hutchins 08/04/2023 11 :08 AM EDT Last Filed Vital Signs Vital Sign Reading Time Taken Comments Blood Pressure 114/70 08/04/2023 4:12 PM EDT Pulse 93 08/04/2023 4:12 PM EDT Temperature 36.1 C (97 F) 08/04/2023 4:12 PM EDT Respiratory Rate 20 08/04/2023 4:12 PM EDT Oxygen Saturation 96% 08/04/2023 4:12 PM EDT Inhaled Oxygen Concentration - - Weight 65.3 kg (144 lb) 08/04/2023 11:05 AM EDT Height 162.6 cm (5' 4 ) 08/04/2023 11:05 AM EDT Body Mass Index 24.72 08/04/2023 11:05 AM EDT Plan of Treatment Health Maintenance Due Date Last Done Comments Adult Td,Tdap Booster 1964 LIPID PANEL 1964 DEPRESSION SCREENING 1976 HEPATITIS C SCREENING 1982 HIV ONE-TIME SCREENING (18-6 5 YEARS) 1982 PNEUMOCOCCAL VACCINES (50+ y ears) (1 of 2 - PCV) 1983 ZOSTER VACCINES (1 of 2) 1983 PAP SMEAR 1985 MAMMOGRAM 2004 COLOGUARD 2009 COLONOSCOPY 2009 COLORECTAL CANCER SCREENING 2009 FIT TEST 2009 FOBT 2009 SIGMOIDOSCOPY 2009 VIRTUAL COLONOSCOPY 2009 RSV VACCINE (1 - Risk 50-74 years 1-dose series) 2014 COVID-19 VACCINE (2 - Pfizer risk series) 02/05/2021 01/15/2021 INFLUENZA VACCINE (#1) 2025 09/27/2019 SMOKING STATUS SCREENING (On ce After 26 Yrs) Completed 11/05/2019 HEPATITIS A VACCINES Aged Out No long er eligible based on patient's age to complete this topic HIB VACCINES Aged Out No longer eligi ble based on patient's age to complete this topic MENINGOCOCCAL VACCINES (ACWY) Aged Out No longer eligible based on patient's age to complete this topic MENINGOCOCCAL VACCINES (B) Aged Out N o longer eligible based on patient's age to complete this topic Medical Devices Not on file Insurance [facility] [place] [facility] [place] [place] [address] [place] [address] [facility] [employer] COMPENSATION Member Subscriber Plan / Payer (Ef fective 2023-Present) Name:Eleanor Islas V Relation to Subscriber:Employee Name:[employer] Subscriber ID:Not on file Address: [address] [place] [address] Payer ID:Not on file Group ID:Not on file Type:Indemnity Address: [facility] [address] [address] [place] [address] Care Teams Engineering Operations Leader Relationship Specialty Start Date End Date Naveed Orosco MD [address] [place] [address] PCP - General 04/11/14 Additional Source Comments The information contained in this document represents components of the legal health record. It is not the complete legal health record.[facility]
--- OUTSIDE RECORDS SUMMARY | 2025-07-29 10:09 | XMS_ITS | Patient Health Record ---
Author Organization [employer] [facility] Address [address] [place], [place] [address] Care Team Providers Care Orthotics Prosthetics Assistant Name Role Phone JEN BANERJEE Primary Care Provider zz(DO NOT USE) JEN BANERJEE Unavailable U krissyailLIDA [place] Unavailable [phone] ALLERGIES No Known Allergies REASON FOR REFERRAL Reason dr jarvis skin check Referral Organization [facility] Roddy owens Referring Provider First Name JEN Referring Provider Last Name LAVONNE Referring Provider Speciality Internal M edicine Referred Provider JEY JARVIS Referred Provider Specialty Dermatology General Notes Leia MANRIQUEZ [place] 025 10:16:01 AM > patient needs referral for dr jarvis skin jose david ov 12/09/24 [address] [place] [address] needs insuranc referral sent againe for pt, DECLAN,Jackie P Admin 07/10/2025 02:03:08 PM > cant go as far back as 12/09/24>start date will be 04/11/25>referral approved and faxed to Bernard Rosenberg at [phone] Referral Priority Urgent Referral Appointment Date 04/11/2025 Reason asthma J45.909 Referral Organization [facility] [employer] graciela Referring Provider First Name JEN Referring Provider Last Name LAVONNE Referring Provider Speciality Internal M edicine Referred Provider DEVIN LINO Referred Provider Specialty Pulmonary Di seases General Notes Rosalie/Dr. Devin Lino , [address] [place] [address]. [address], (P) [phone] (F) [phone], Date of Service: 12/16/24, Diagnosis: asthma, w/6 visits, DECLAN,Jackie P Admin 12/12/2024 07:59:29 AM > per incoming referral request from [facility] requesting a referral to start 11/23/24>referral approved and faxed to [facility] at [phone]>encounter closed Referral Priority Routine Referral Appointment Date 11/23/2024 MEDICATIONS Medication SIG (Take, Route, Frequency, Duration) Notes Start Date End Date Status Adderall 10 MG 1 tablet Orally once a day for 30 days 07/13/2025 Active Albuterol Sulfate (sensor) 108 (90 Base) MCG/ACT 1 puff as needed Inhalation every 4 hrs for 30 days Unknown Breo Ellipta 200-25 MCG/ACT 1 puff Inhal ation Once a day for 90 days Unknown Symbicort 160-4.5 MCG/ACT 2 puffs Inhala tion Twice a day for 30 days Unknown Lexapro 20 MG 1 tablet Orally Once a day for 90 days Unknown Escitalopram Oxalate 20 MG TAKE 1 TABLET BY MOUTH EVERY DAY for 90 Active Montelukast Sodium 10 MG TAKE 1 TABLET [...] tablet Orally tw ice a day Unknown SOCIAL HISTORY Tobacco Use: Social History Observation Description Date Details (start date - stop date) Never Smoker NA - NA Sex Assigned At : Social History Observation Description Sex Assigned At Unknown Smoking Question Answer Notes Are you a: never smoker Section Notes: pt never smoke pt never smoke PROBLEMS Problem Type ICD Code Onset Dates Problem Status W/U Status Risk SNOMED Code Notes Problem IBS [Irritable bowel syndrome] (564.1) Active confirmed Irritable bowel syndrome (20759256) Problem Diarrhea (787.91) Active confirmed Diarrhea (71676185) Problem Disorder of lipoprotein metabolism, unspecified (E78.9) Active confirmed Disorder of lipoprotein storage and metabolism (disorder) (503434387) Problem Irritable bowel syndrome with diarrhea (K58.0) Active confirmed Irritable b owel syndrome with diarrhea (658199512) Problem Lung nodule (R91.1) Active confirmed 886981725 Problem Acute left-sided low back pain with left-sided sciatica (M54.42) Active confirmed 926239204 Problem Asthma, unspecified asthma severity, unspecified whether complicated, unspecified whether persistent (J45.909) Active confirmed 074309486 Problem Abnormal chest x-ray (R93.89) Active confirmed 211111415 Encounters Encounter Location Date Provider Diagnosis [address] [address] 09/09/[address] [address] 09/13/[address] [address] 09/14/2024 JEN BANERJEE Asthma, unspecified asthma severity, unspecified whether complicated, unspecified whether persistent J45.909 ; Disorder of lipoprotein metabolism, unspecified E78.9 ; Irritable bowel syndrome with diarrhea K58.0 ; Lung nodule R91.1 ; Allergy, unspecified, initial encounter T78.40XA and Encntr for general adult medical exam w/o abnormal findings Z00.[address] [address] 09/22/2024 LIDA SHAY [address] [address] 10/10/[address] [address] 11/29/[address] [address] 12/29/[address] [address] 03/13/[address] [address] 05/02/[address] [address] 05/02/[address] [address] 05/10/[address] [address] 05/11/2025 JEN BANERJEE Asthma, unspecified asthma severity, unspecified whether complicated, unspecified whether persistent J45.909 ; Disorder of lipoprotein metabolism, unspecified E78.9 ; Lung nodule R91.1 ; Encntr for general adult medical exam w/o abnormal findings Z00.00 ; Irritable bowel syndrome with diarrhea K58.0 ; Encounter for screening mammogram for malignant neoplasm of breast Z12.31 and Osteoporosis screening Z13.820 [facility] [address] [place] [address] 05/24/2025 JEN BANERJEE [facility] [address] [place] [address] 06/06/2025 JEN BANERJEE [facility] [address] [place] [address] 07/10/2025 [facility] [address] [place] [address] 07/13/2025 JEN BANERJEE ASSESSMENTS Encounter Date Diagnosis Assessment Notes Treatment Notes Treatment Clinical Notes Section Notes 05/11/2025 Asthma, unspecified asthma severity, unspecified whether complicated, unspecified whether persistent (ICD-10 - J45.909) 05/11/2025 Disorder of lipoprotein metabolism, unspecified (ICD-10 - E78.9) 09/14/2024 Asthma, unspecified asthma severity, unspecified whether complicated, unspecified whether persistent (ICD-10 - J45.909) 09/14/2024 Disorder of lipoprotein metabolism, unspecified (ICD-10 - E78.9) 09/14/2024 Irritable bowel syndrome with diarrhea (ICD-10 - K58.0) 05/11/2025 Lung nodule (ICD-10 - R91.1) 09/14/2024 Lung nodule (ICD-10 - R91.1) 05/11/2025 Encntr for general adult medical exam w/o abnormal findings (ICD-10 - Z00.00) 09/14/2024 Allergy, unspecified, initial encounter (ICD-10 - T78.40XA) 05/11/2025 Irritable bowel syndrome with diarrhea (ICD-10 - K58.0) 09/14/2024 Encntr for general adult medical exam w/o abnormal findings (ICD-10 - Z00.00) 05/11/2025 Encounter for screening mammogram for malignant neoplasm of breast (ICD-10 - Z12.31) 05/11/2025 Osteoporosis screening (ICD-10 - Z13.820) PLAN OF TREATMENT Pending Test Test Name Order Date EKG 05/11/2025 EKG 09/14/2024 CT Scan Chest with and without contrast 06/22/2023 Future Test Test Name Order Date [id number] 09/09/2024 CBC, Platelet, w/o [id number] 11/09/2023 C-Reactive Protein, Cardiac-[id number] 09/09 Lipid Panel-[id number] 09/09/2024 Comp. Metabolic Panel [id number] 2023 Urinalysis, Complete w/[id number] 025 CBC, Platelet, w/o [id number] 0 05/02/2025 C-Reactive Protein, Cardiac-[id number] 05/02 Lipid Panel-[id number] 05/02/2025 HCV Antibody-[id number] 05/02/2025 Comp. Metabolic Panel [id number] 2024 Next Appt Details Provider Name:JEN BROWN, 11/28/2025 01:15:00 PM, [address] [place], [address], Insurance Providers Payer Name Payer Address Payer Phone Subscriber Number Group Number Insured Name Patient Relationship to Insured Coverage Start Date Coverage End Date [employer] [address] [place] [address] [phone] [id number] SHEILA DAVIS Self - patient is the insured WORKERS COMPENSATION [employer] [address] [place] [id number] SHEILA DAVIS Self - patient is the insured MEDICAL (GENERAL) HISTORY Medical History History ICD Code allergies (seasonal) asthma irritable bowel syndrome colon polyps 2004 Colonoscopy 11/23/2009-Sm internal hem migraines X 2 weeks with aur a of losstemporal blindness ipsilateral to the headache which can be on either side alopecia Colonoscopy 2015 Dr. Shepard ESCALATOR OPERATOR Dr. Pearce Chest CT June 2023 opac ity left lung resolved. No hilar mass. Right lower lung nodules measuring up to 6 mm nonspecific follow-up [address] Lino October [address] Shepard 1 small rhonda yp Surgical History Surgery Date(Month/Year) Hand Sugery (R) colonoscopy - 3 polyps, benign 2003 nose hernia Hospitalization History Reason Date(Month/Year) [facility]- fall 07/2023
--- OUTSIDE RECORDS SUMMARY | 2025-07-29 10:09 | XMS_ITS | Clinical Summary ---
Author Organization [facility] [place] [address] Care Team Providers Care Low Voltage Electrician Name Role Phone Naveed Orosco MD Primary Care Provider [phone] Social History Tobacco Use Types Packs/Day Years Used Date Smoking Tobacco: Never Assessed Comments Unknown Sex and Gender Information Value Date Recorded Sex Assigned at Not on file Legal Sex Female 9:03 PM EST Gender Identity Not on file Sexual Orientation Not on file Plan of Treatment Health Maintenance Due Date Last Done Comments Breast Cancer Screening 1965 Colorectal Cancer Screening: Colonoscopy 1964 DTaP,Tdap,and Td Vaccines (1 - Tdap) 1983 Cervical Cancer Screening: P ap Smear 1985 Pneumococcal Vaccine: 50+ Ye ars (1 of 1 - PCV) 2014 Zoster Vaccines (1 of 2) 2014 HIV Screening 09/13/2022 Hepatitis C Screening 09/13/2022 Social Influencers of Health Screening 09/13/2022 Depression Screening 10/12/2024 COVID-19 Vaccine (1 - 2023-2 5 season) 2025 Influenza Vaccine (#1) 2025 RSV Immunization Adult Patie nts (1 [...] age to complete this topic Care Teams Low Voltage Electrician Relationship Specialty Start Date End Date Naveed Orosco MD PCP - General Internal Medicine 07/10/21
== END 2025-07-29 10:06 | disposition home or self-care (01) ==
LOC: HO.CT 10:05
PROVIDERS: PCP Internal Medicine; Visit Provider Hospitalist
DX: R91.8 Other nonspecific abnormal finding of lung field (principal); J98.4 Other disorders of lung
CPT/HCPCS: 71250

== ENCOUNTER → 2025-07-29 10:07 | Outpatient (BNV) | payer BC, SELFPAY | PROVIDERS: PCP Internal Medicine; Visit Provider Radiology Diagnostic Radiology | DX: R91.8 Other nonspecific abnormal finding of lung field (principal) | CPT/HCPCS: 71250 ==